=== PATIENT | female | born 1960 | race Caucasian/White ===

== ENCOUNTER 2020-09-25 17:20 | Outpatient (CLI) | payer OTHER, SELFPAY | END 2020-09-25 17:21 | disposition home or self-care (01) | LOC: ANHCOVIDVC 17:20 | PROVIDERS: PCP Family Medicine | DX: Z23 Encounter for immunization (principal) | CPT/HCPCS: 0001A; 91300 ==

== ENCOUNTER 2020-10-16 17:11 | Outpatient (CLI) | payer OTHER, SELFPAY | END 2020-10-16 17:12 | disposition home or self-care (01) | LOC: ANHCOVIDVC 17:12 | PROVIDERS: PCP Family Medicine | DX: Z23 Encounter for immunization (principal) | CPT/HCPCS: 0002A; 91300 ==

== ENCOUNTER → 2021-11-07 16:55 | Outpatient (CLI) | payer OTHER, SELFPAY ==
--- NOTE | ~2021-11-07 | MR_ITS ---
EXAMINATION: MR knee RT wo con DATE: 11/07/2021 17:42 INDICATION: Right knee pain. TECHNIQUE: Magnetic resonance imaging (MRI) of the right knee was performed without intravenous contr ast. Sequences included axial PD-weighted FS FSE, coronal PD-weighted FSE and PD-weighted FS FSE, sag ittal PD-weighted FSE, and sagittal T2-weighted FS FSE. COMPARISON: None. FINDINGS: Medial compartment: There is a complex tear involving body and posterior horn of medial meniscus. There is deep partial t hickness cartilage loss of tibial condyle involving the central and medial articular surface with mil d subchondral edema-like marrow signal intensity. There is deep partial thickness cartilage loss of f emoral condyle involving the central, medial, and posterior articular surface. Osteophytes are noted. Lateral compartment: Lateral meniscus is normal. There is shallow partial-thickness cartilage loss of tibial condyle. Ther e is partial-thickness cartilage loss of femoral condyle, deep at the central articular surface. Oste ophytes are noted. Patellofemoral compartment: There is deep partial thickness cartilage loss of patella involving the median ridge and medial facet . There is full-thickness cartilage loss of medial and lateral trochlea and deep partial thickness ca rtilage loss of central trochlea. Ligaments and tendons: Anterior and posterior cruciate ligaments are normal. There are changes of prior sprains of medial co llateral ligament and fibular collateral ligament characterized by increased signal intensity proxima lly. There is mild patellar tendinopathy. Fluid: There is a small knee joint effusion. There is trace fluid in a Brar's cyst. There is mild superfici al infrapatellar bursitis. IMPRESSION: 1. Severe chondrosis of patellofemoral compartment and moderate chondrosis of medial and lateral comp artments. 2. Tear of medial meniscus. 3. Small knee joint effusion. Reviewed, dictated and finalized at location A. IMPRESSION: 1. Severe chondrosis of patellofemoral compartment and moderate chondrosis of m edial and lateral compartments. 2. Tear of medial meniscus. 3. Small knee joint effusion.
== END ==
PROVIDERS: PCP Physician Assistant; Visit Provider Nurse Practitioner Adult Health
DX: S83.241A Other tear of medial meniscus, current injury, right knee, initial encounter (principal); X58.XXXA Exposure to other specified factors, initial encounter; M25.461 Effusion, right knee
CPT/HCPCS: 73721

== ENCOUNTER 2023-07-07 18:27 | Inpatient (IN) | payer OTHER, SELFPAY ==
--- NOTE | ~2023-07-07 | CT_ITS ---
EXAMINATION: CT abdomen pelvis w con DATE: 07/08/2023 03:27 INDICATION: Abdominal pain. Bloody diarrhea. TECHNIQUE: Computed tomography (CT) of the abdomen and pelvis was performed with 100 mL Omnipaque 350 intravenous contrast. Automated exposure control and iterative reconstruction technique were employe d. The dose-length product was 576.42 mGy-cm. COMPARISON: None. FINDINGS: The visualized portions of the lung bases demonstrate mild atelectasis. No pleural effusion . The heart size is normal. No pericardial effusion. There is a 1.8 cm cyst in the liver. There are c hanges of cholecystectomy. The spleen, pancreas, adrenal glands, and kidneys are normal. The periuter ine veins are prominent, consistent with pelvic venous insufficiency. There is diverticulosis of the colon without evidence of diverticulitis. There is wall thickening of the transverse colon. The appen chantell is normal. There is no significant stenosis of celiac axis, superior mesenteric artery, or inferi or mesenteric artery. There are no pathologically enlarged lymph nodes. There is a small volume of as cites. There is mild thoracic and lumbar spondylosis. IMPRESSION: 1. Wall thickening of the transverse colon, consistent with colitis. 2. Small volume of ascites. Reviewed, dictated and finalized at location E. RNATIONAL TRAVEL CONSULTANT
[2023-07-07 18:40] VITALS: BP 132/79; PULSE 118; RESP 16; TEMP 36.8; O2SAT 98
[2023-07-08] VITALS (19 sets, daily range): BP systolic 93–141; BP diastolic 54–76; PULSE 63–98; RESP 13–18; TEMP 35.9–37.1; O2SAT 96–100; BMI 31.6
[2023-07-08 02:19] LABS: Basophils Absolute Auto 0.1 K/mm3 (0.0-0.1); Basophils Percent Auto 0.3 % (0.2-1.2); Eosinophils Absolute Auto 0.1 K/mm3 (0-0.3); Eosinophils Percent Auto 0.5 % (0-4.4); Hematocrit 42.5 % (37.0-47.0); Hemoglobin 14.1 g/dL (12.0-15.0); Immature Granulocyte Percent A 0.5 % (0-0.5); Lymphocytes Absolute Auto 4.06 K/mm3 (0.9-3.2); Lymphocytes Percent Auto 19.3 % (18.3-44.2); Mean Corpuscular HGB Conc 33.2 g/dl (32-36); Mean Corpuscular Volume 93.4 fl (80-100); Mean Platelet Volume 9.5 fl (7.4-10.4); Monocytes Absolute Auto 1.1 K/mm3 (0.1-0.6); Monocytes Percent Auto 5.1 % (2.6-8.5); Neutrophils Absolute Auto 15.6 K/mm3 (1.3-6.7); Neutrophils Percent Auto 74.3 % (45.5-73.1); Platelet Count Result 285 k/mm3 (150-375); Red Blood Count 4.55 M/mm3 (4.2-5.4); Red Cell Distribution Width 12.1 % (11.5-14.5)
[2023-07-08 02:30] LABS: Alanine Aminotransferase 19 U/L (6-35); Albumin Level 3.4 g/dL (3.5-5.1); Alkaline Phosphatase 82 U/L (38-126); Anion Gap 7 mmol/L (8-16); Aspartate Amino Transferase 20 U/L (14-36); Bilirubin,Total 0.8 mg/dL (0.2-1.3); Blood Urea Nitrogen 14 mg/dL (7-17); Calcium 8.9 mg/dL (8.4-10.2); Carbon Dioxide 27 mmol/L (22-30); Chloride 102 mmol/L (98-107); Estimated CRCL calculation 98 ml/min; Estimated Glomerular Filt Rate > 60; Glucose 120 mg/dL (65-110); Potassium 3.5 mmol/L (3.4-5.0); Sodium 136 mmol/L (137-145)
[2023-07-08] MEDS: SODIUM CHLORIDE 0.9% IV 1,000 ML 999 ML IV CONT (02:30)
[2023-07-08] MEDS: ONDANSETRON INJ 4 MG/2 ML VIAL IV PUSH (02:30)
[2023-07-08] MEDS: MORPHINE SULFATE (*CRX) 4 MG/ML INJ IV PUSH ×5 (02:31→21:18)
[2023-07-08 02:33] LABS: INR 1.1; Prothrombin Time 14.4 Seconds (11.1-14.7)
[2023-07-08 02:34] LABS: Partial Thromboplastin Time 28.1 SECONDS (22.3-36.8)
--- NOTE | 2023-07-08 06:03 | ED.GENADULT ---
HPI - General Adult General Chief complaint: GI Bleed Stated complaint: rectal bleeding, abd pain Time Seen by Provider: 07/08/23 01:36 History of Present Illness HPI narrative: Patient is a 8-year-old female who presents emergency department with chief complaint of abdominal pain and bloody stools. Patient reports that she started having abdominal discomfort has recently been on doxycycline and steroids the patient states that she has had a crampy like feeling throughout her abdomen reports worse in the lower quadrants. Patient states she started having diarrhea and then started having bloody diarrhea Related Data Allergies Allergy/AdvReac Type Severity Reaction Status Date / Time lorazepam Allergy Mild Verified 11/08/10 22:03 Penicillins Allergy Mild Verified 11/08/10 22:03 CEPHALEXIN MONOHYDRATE Allergy Mild Uncoded 11/08/10 22:03 Review of Systems Review of Systems: A 10 system review of systems was completed on the patient and is negative except for what is stated in the HPI. Nursing and ancillary documentation was reviewed. Exam Narrative: GENERAL: Well-appearing, well-nourished, and in no acute distress. HEAD: Normocephalic, atraumatic. EYES: PERRLA and EOMI. ENT: Nares clear, no rhinorrhea or epistaxis. Mucous membranes moist. NECK: Supple. CHEST: Clear to auscultation. No respiratory distress. HEART: Regular rate and rhythm. No murmur heard. Normal peripheral pulses. ABDOMEN: Soft, tenderness to palpation lower quadrants of the abdomen, nondistended, normal active bowel sounds. EXTREMITIES: Normal range of motion. No edema. SKIN: Warm, dry, no rash. NEURO: No focal deficits. Alert and oriented x3. PSYCH: Normal mood and affect. Course Vital Signs Vital signs: Vital Signs Temperature 36.8 C 07/07/23 18:40 Pulse Rate 118 H 07/07/23 18:40 Respiratory Rate 16 07/07/23 18:40 Blood Pressure 132/79 07/07/23 18:40 Pulse Oximetry 98 07/07/23 18:40 Oxygen Delivery Room Air 07/07/23 18:40 Temperature 36.8 C 07/07/23 18:40 Pulse Rate 91 07/08/23 04:17 Respiratory Rate 16 07/08/23 04:17 Blood Pressure 141/72 H 07/08/23 03:00 Pulse Oximetry 97 07/08/23 04:17 Oxygen Delivery Room Air 07/07/23 18:40 Medical Decision Making MDM Narrative Medical decision making narrative: Differential diagnosis colitis, diverticulitis, GI bleed Laboratory studies were obtained on the patient which showed a white count 21.0 hemoglobin was 14.1 CMP was within normal limits CT scan of the abdomen pelvis showed evidence of colitis Given the patient's leukocytosis patient was started on Cipro and Flagyl IV since the patient does have an allergy to penicillins and cephalosporins Vital Signs Vital Signs: Vital Signs Temperature 36.8 C 07/07/23 18:40 Pulse Rate 118 H 07/07/23 18:40 Respiratory Rate 16 07/07/23 18:40 Blood Pressure 132/79 07/07/23 18:40 Pulse Oximetry 98 07/07/23 18:40 Oxygen Delivery Room Air 07/07/23 18:40 Temperature 36.8 C 07/07/23 18:40 Pulse Rate 91 07/08/23 04:17 Respiratory Rate 16 07/08/23 04:17 Blood Pressure 141/72 H 07/08/23 03:00 Pulse Oximetry 97 07/08/23 04:17 Oxygen Delivery Room Air 07/07/23 18:40 Lab Data 07/08/23 02:15 07/08/23 02:15 Labs: Lab Results 07/08/23 Range/Units 02:15 WBC 21.0 H (4.5-10.0) K/mm3 RBC 4.55 (4.2-5.4) M/mm3 Hgb 14.1 (12.0-15.0) g/dL Hct 42.5 (37.0-47.0) % MCV 93.4 (80-100) fl MCH 31.0 (26-34) pg MCHC 33.2 (32-36) g/dl RDW 12.1 (11.5-14.5) % Plt Count 285 (150-375) k/mm3 MPV 9.5 (7.4-10.4) fl Immature Gran % (Auto) 0.5 (0-0.5) % Neut % (Auto) 74.3 H (45.5-73.1) % Lymph % (Auto) 19.3 (18.3-44.2) % [place] % (Auto) 5.1 (2.6-8.5) % Eos % (Auto) 0.5 (0-4.4) % Baso % (Auto) 0.3 (0.2-1.2) % Lymph # (Auto) 4.06 H (0.9-3.2) K/mm3 [place] # (Auto) 1.1 H (0.1-0.6) K/mm3 Eos # (Auto)
[2023-07-08] MEDS: metroNIDAZOLE 500 MG/ISO 100ML 500 MG/100 ML BAG 100 MG IVPB ×3 (06:08→17:46)
[2023-07-08] MEDS: ACETAMINOPHEN 500 MG TABLET 1000 MG PO (06:09)
--- NOTE | 2023-07-08 07:00 | ADMGEN ---
This patient, Kimmie Chand, was admitted to [facility] Surg Room 317-01. Patient/family oriented to hospital policies and general routines including ID bracelet, bed and alarms, visiting hours, pain management, procedures, bathroom and other care routines, personal items, smoking policy, room service/diet, and visiting hours. Information on how to activate the Rapid Response Team has been discussed. Patient/Family are encouraged to report perceived risks to care and to ask questions if they do not understand what they are told or what they should do.
[2023-07-08] MEDS: SODIUM CHLORIDE 0.9% IV 1,000 ML 125 ML IV CONT ×2 (08:05→19:18)
[2023-07-08] MEDS: levoFLOXacin 750 MG/D5W 150 ML 750 MG/150 ML BAG 100 MG IVPB (08:05)
--- NOTE | 2023-07-08 08:54 | PM.IMHP ---
H&P: HPI History of Present Illness Date/Time: 07/08/23 08:54 Chief Complaint: abdominal pain Narrative: 62-year-old female with history of hypertension is presenting with abdominal pain, diarrhea, and blood in her stool. She admits to lower quadrant abdominal cramping. She denies chest pain, shortness of breath, fevers, chills. Patient states she has recurrent episodes of cramping abdominal pain followed by an episode or 2 of diarrhea. She also notes nausea with these episodes but rarely emesis. She occasionally gets hot flashes and then cold chills as well as ear ringing during these episodes. She states this episode was exactly the same as all the other ones except for the blood in her stool that was new. Normally she just has watery stool but no blood. As of today, all of her symptoms are resolved. She was recently placed on doxycycline and prednisone as an outpatient for URI symptoms. In the ER, CT abdomen and pelvis showed colitis and patient was started on Cipro and Flagyl. She was also noted to a leukocytosis with a white blood cell count of 21K. Review of Systems Review of Systems: 12 point review of systems was assessed and was negative except as noted in the HPI [facility] Past Medical History Medical History Benign essential hypertension Social History Social History Smoking status: Never smoker Alcohol intake: current Drinks per week: 1 Substance use: never Last use: rare alcohol intake 1 every couple of months Do You Feel Safe in your Home?: No Lack of Transportation: No Lack of Food: Never True Current Housing: I Have Housing Concerned About Future Housing: No Difficulty Paying Gas/Electric Bills: No Difficulty Paying for Meds: No Currently Unemployed: No Education: Bachelor's Degree Difficulty w/ Childcare or Family Care: No Spiritual care concerns: No Meds Home Medications and Allergies Home Medications Medication Instructions Recorded Confirmed Type hydrochlorothiazide 25 mg tablet 25 mg PO DAILY 07/08/23 07/08/23 History Allergies Allergy/AdvReac Type Severity Reaction Status Date / Time lorazepam Allergy Severe throat Verified 07/08/23 08:14 swelling Penicillins Allergy Severe Difficulty Verified 07/08/23 08:14 Breathing CEPHALEXIN MONOHYDRATE Allergy Severe Swelling Uncoded 07/08/23 08:14 of Lip/Tongue/Throat Vital Signs Vital Signs - 24 hr 07/07/23 18:40 07/08/23 02:16 07/08/23 02:17 Temperature 98.3 F Pulse Rate 118 H 96 Respiratory Rate 16 15 Blood Pressure 132/79 Pulse Oximetry 98 97 99 Oxygen Delivery Room Air 07/08/23 02:21 07/08/23 02:43 07/08/23 02:45 Temperature Pulse Rate 97 89 89 Respiratory Rate 17 13 18 Blood Pressure 129/72 Pulse Oximetry 98 99 97 Oxygen Delivery 07/08/23 03:00 07/08/23 03:01 07/08/23 03:24 Temperature Pulse Rate 83 84 98 Respiratory Rate 15 Blood Pressure 141/72 H Pulse Oximetry 98 100 99 Oxygen Delivery 07/08/23 03:30 07/08/23 03:45 07/08/23 04:00 Temperature Pulse Rate 92 92 93 Respiratory Rate 13 16 16 Blood Pressure Pulse Oximetry 96 96 97 Oxygen Delivery 07/08/23 04:17 07/08/23 06:15 07/08/23 06:30 Temperature Pulse Rate 91 92 87 Respiratory Rate 16 18 18 Blood Pressure 95/76 L Pulse Oximetry 97 97 97 Oxygen Delivery 07/08/23 06:31 Temperature Pulse Rate 91 Respiratory Rate 16 Blood Pressure 106/70 Pulse Oximetry 97 Oxygen Delivery Exam Narrative: General: No acute distress, alert and oriented per baseline HEENT: Atraumatic, normocephalic, mucous membranes moist CV: Regular rate and rhythm, S1, S2 Lungs: Clear to auscultation bilaterally, no rales or crackles noted, no wheezes, good air entry Abdomen: Soft, nontender, nondistended Extremities: Normal to inspection
[2023-07-08] MEDS: PANTOPRAZOLE SODIUM IV 40 MG VIAL IV PUSH (10:15)
[2023-07-08] MEDS: hydroCHLOROthiazide 25 MG TABLET PO (10:15)
[2023-07-08 10:41] LABS: CRP 3.2 mg/dL (<1.0)
--- NOTE | 2023-07-08 15:10 | PCCCNOTE ---
On 07/08/23, the student, [Lisette Leblanc], provided care and completed [facility] documentation on this patient. I have reviewed the student's documentation and agree with the findings.
--- NOTE | 2023-07-08 16:57 | WPDGICN ---
Assessment and Plan Assessment and plan (1) Colitis: Code(s): K52.9 - Noninfective gastroenteritis and colitis, unspecified Status: Acute Assessment and Plan: CT scan shows colonic wall thickening of the transverse colon. This suggests segmental colitis which would be consistent with ischemia as an etiology. She has no history however of any vascular disease. her cramping is worse when she tries to eat. She states she would do better with just liquids I agree with her that would be best not to tax her system with regular food at this point. (2) Leukocytosis: Code(s): D72.829 - Elevated white blood cell count, unspecified Status: Acute Assessment and Plan: With blood count is elevated. She has been started on ciprofloxacin and metronidazole empirically. (3) Bloody diarrhea: Code(s): R19.7 - Diarrhea, unspecified Status: Acute Assessment and Plan: She has never had this before. The blood was dark red in the bowl but bright red when she wiped herself. Given the fact she has recently been on antibiotics, C difficile colitis is a possibility. I have ordered stool for C diff. She has not yet been able to produce a stool because she has had None since admission. GI Consult Note Consult date/time: 07/08/23 16:57 HPI: Kimmie Chand is a 62 year old female Was admitted with abdominal pain and rectal bleeding. prior to that she was having diarrhea. this all started on Piter would initially she felt cramping in her abdomen and was becoming diaphoretic and lightheaded. She went to the bathroom thinking she may have diarrhea but that did not a core. At lasted for some time. She had another episode like that and subsequently did pass stool. His stool was dark red and when she wiped herself there was bright red blood on the paper. She had 2 stools like that. Now, today since admission she has had no more bowel movements. She has recently been on steroids And doxycycline for upper respiratory infection including pharyngitis, laryngitis and cough. CT scan suggests colitis, it reveals: 1. Wall thickening of the transverse colon, consistent with colitis. 2. Small volume of ascites. She has never had disorders of the colon. She has never had a colonoscopy but her new primary care provider has been encouraging her to have 1. She has done Cologuard tests and they were negative. There is no family history of digestive diseases. She did not have a fever at home. Her white blood count however is elevated at 21,000 . Review of Systems Review of Systems: All systems reviewed & are unremarkable except as noted in HPI and below PMFSH Past Medical History Medical History Benign essential hypertension Social History Social History Smoking status: Never smoker Alcohol intake: current Drinks per week: 1 Substance use: never Last use: rare alcohol intake 1 every couple of months Do You Feel Safe in your Home?: No Lack of Transportation: No Lack of Food: Never True Current Housing: I Have Housing Concerned About Future Housing: No Difficulty Paying Gas/Electric Bills: No Difficulty Paying for Meds: No Currently Unemployed: No Education: Bachelor's Degree Difficulty w/ Childcare or Family Care: No Spiritual care concerns: No Meds Home Medications and Allergies Home Medications Medication Instructions Recorded Confirmed Type hydrochlorothiazide 25 mg tablet 25 mg PO DAILY 07/08/23 07/08/23 History Allergies Allergy/AdvReac Type Severity Reaction Status Date / Time lorazepam Allergy Severe throat Verified 07/08/23 08:14 swelling Penicillins Allergy Severe Difficulty Verified 07/08/23 08:14 Breathing CEPHALEXIN MONOHYDRATE Allergy Severe Swelling Uncoded 07/08/23 08:14 of Lip/Tongue/Throat Vit
[2023-07-09] MEDS: metroNIDAZOLE 500 MG/ISO 100ML 500 MG/100 ML BAG 100 MG IVPB ×4 (00:36→17:00)
[2023-07-09] MEDS: SODIUM CHLORIDE 0.9% IV 1,000 ML 125 ML IV CONT (04:31)
[2023-07-09 06:00] VITALS: BP 102/54; PULSE 88; RESP 18; TEMP 37; O2SAT 100
[2023-07-09] MEDS: levoFLOXacin 750 MG/D5W 150 ML 750 MG/150 ML BAG 100 MG IVPB (06:40)
--- NOTE | 2023-07-09 06:41 | WPDGIPROGNO ---
Progress Note: A&P Assessment and Plan (1) Colitis: Code(s): K52.9 - Noninfective gastroenteritis and colitis, unspecified Status: Acute Assessment and Plan: CT scan shows colonic wall thickening of the transverse colon. This suggests segmental colitis which would be consistent with ischemia as an etiology. She has no history however of any vascular disease. her cramping is worse when she tries to eat. She states she would do better with just liquids I agree with her that would be best not to tax her system with regular food at this point. Will schedule for colonoscopy and begin prep today (2) Leukocytosis: Code(s): D72.829 - Elevated white blood cell count, unspecified Status: Acute Assessment and Plan: With blood count is elevated. She has been started on ciprofloxacin and metronidazole empirically. (3) Bloody diarrhea: Code(s): R19.7 - Diarrhea, unspecified Status: Acute Assessment and Plan: She has never had this before. The blood was dark red in the bowl but bright red when she wiped herself. Given the fact she has recently been on antibiotics, C difficile colitis is a possibility. I have ordered stool for C diff. She has not yet been able to produce a stool because she has had None since admission. Subjective Date/time seen: 07/09/23 06:41 She is tolerating liquid diet. Still cramping though not as severe. No bowel movement since admission. I discussed with her the possible etiologies, infectious versus ischemic colitis. Will begin prep for colonoscopy. Exam Const: General: cooperative and healthy appearing Orientation/consciousness: patient oriented x3 HENMT: Head: normal to inspection Ears: hearing grossly normal bilaterally Mouth: Yes Normal oral and palatal mucosa present Eyes: General: appearance normal, both eyes and all related structures Neck: Neck: normal visual inspection Chest: Chest palpation & inspection: normal inspection of the chest Resp: Effort & Inspection: normal respiratory effort Auscultation: clear to auscultation bilaterally Cardio: Rate: regular rate Rhythm: regular rhythm GI: Inspection: normal to inspection GI Palp: Yes abdominal tenderness ( Throughout lower abdomen), Yes Soft to palpation, No Guarding due to palpation present (GI) and Yes No hepatosplenomegaly present Auscultation: normal bowel sounds Skin: General skin exam: normal color and no jaundice Neuro: General: patient oriented x3 Speech: normal speech Objective Data Vital Signs Vital Signs: Vital Signs - 24 hr 07/08/23 12:00 07/08/23 14:00 07/08/23 21:45 Temperature 36.4 C L 35.9 C L 37.1 C Pulse Rate 63 67 93 Respiratory Rate 18 18 16 Blood Pressure 93/54 L 99/58 L 108/59 L Pulse Oximetry 99 96 98 Oxygen Delivery 07/08/23 20:00 07/09/23 06:00 Temperature 37.0 C Pulse Rate 93 88 Respiratory Rate 16 18 Blood Pressure 102/54 L Pulse Oximetry 98 100 Oxygen Delivery Room Air Intake/Output Intake/Output: Intake & Output 07/06/23 07/07/23 07/08/23 07/09/23 23:59 23:59 23:59 23:59 Intake Total 3660 1400 Balance 3660 1400 Meds/Results Medications: Active Medications Generic Name Dose Route Start Last Admin Trade Name Freq PRN Reason Stop Dose Admin Acetaminophen 650 mg 07/08/23 06:09 Acetaminophen 325 Mg Tablet PO Q4H PRN Mild Pain (1-3) or Fever Hydrochlorothiazide 25 mg 07/08/23 09:10 07/08/23 10:15 Hydrochlorothiazide 25 Mg Tablet PO 25 mg DAILY LATHA Administration Metronidazole 500 mg in 100 mls @ 100 mls/hr 07/08/23 12:00 07/09/23 05:29 Flagyl 500 Mg/Iso Soln 100 Ml IVPB 100 mls/hr Q6H LATHA Administration Levofloxacin/Dextrose 750 mg in 150 mls @ 100 mls/hr 07/09/23 06:00 07/09/23 06:40 Levaquin 750 Mg/D5w 150 Ml IVPB 100 mls/hr Q24H LATHA Administration Sodium Chloride 1,000 mls @ 125 mls/hr 07/08/23 06:10 07/09/23 04:31 Normal Saline Iv IV
[2023-07-09 06:57] LABS: Basophils Absolute Auto 0.1 K/mm3 (0.0-0.1); Basophils Percent Auto 0.4 % (0.2-1.2); Eosinophils Absolute Auto 0.3 K/mm3 (0-0.3); Eosinophils Percent Auto 2.2 % (0-4.4); Hematocrit 37.5 % (37.0-47.0); Hemoglobin 12.1 g/dL (12.0-15.0); Immature Granulocyte Absolute 0.06 K/mm3 (0.00-0.031); Immature Granulocyte Percent A 0.4 % (0-0.5); Lymphocytes Absolute Auto 3.13 K/mm3 (0.9-3.2); Lymphocytes Percent Auto 22.8 % (18.3-44.2); Mean Corpuscular HGB Conc 32.3 g/dl (32-36); Mean Corpuscular Hemoglobin 30.9 pg (26-34); Mean Corpuscular Volume 95.9 fl (80-100); Mean Platelet Volume 9.6 fl (7.4-10.4); Monocytes Absolute Auto 0.7 K/mm3 (0.1-0.6); Neutrophils Absolute Auto 9.5 K/mm3 (1.3-6.7); Neutrophils Percent Auto 69.2 % (45.5-73.1); Platelet Count Result 219 k/mm3 (150-375); Red Blood Count 3.91 M/mm3 (4.2-5.4); Red Cell Distribution Width 12.1 % (11.5-14.5); White Blood Count 13.7 K/mm3 (4.5-10.0)
[2023-07-09 07:10] LABS: Alanine Aminotransferase 14 U/L (6-35); Alkaline Phosphatase 73 U/L (38-126); Anion Gap 7 mmol/L (8-16); Aspartate Amino Transferase 17 U/L (14-36); Bilirubin,Total 0.5 mg/dL (0.2-1.3); Blood Urea Nitrogen 10 mg/dL (7-17); Calcium 8.5 mg/dL (8.4-10.2); Carbon Dioxide 27 mmol/L (22-30); Chloride 104 mmol/L (98-107); Estimated CRCL calculation 85 ml/min; Estimated Glomerular Filt Rate > 60; Glucose 93 mg/dL (65-110); Potassium 3.4 mmol/L (3.4-5.0); Sodium 138 mmol/L (137-145)
[2023-07-09] MEDS: PANTOPRAZOLE SODIUM IV 40 MG VIAL IV PUSH (08:51)
--- NOTE | 2023-07-09 10:11 | PM.IMPN ---
Progress Note: A&P Assessment and Plan (1) Colitis: Code(s): K52.9 - Noninfective gastroenteritis and colitis, unspecified Status: Acute Assessment and Plan: Cipro and Flagyl initiated 07/08 IV fluids, supportive care, ppi Monitor hemoglobin, suspect blood in stool is secondary to infection and is quite stable Will send stool for cdif, culture, leuks, check CRP Consult to GI placed in pending, likely needs colonoscopy due to recurrent episodes like this, concern for diverticulitis versus Crohn's versus ulcerative colitis versus ischemic vs infectious etiology Appreciate GI consult, plan for colonoscopy 07/10 (2) Benign essential hypertension: Code(s): I10 - Essential (primary) hypertension Status: Acute Assessment and Plan: Continue home hydrochlorothiazide Blood pressures reviewed 07/09 Plan DVT prophylaxis with SCDs GI prophylaxis with PPI Code status full code Subjective Date/time seen: 07/09/23 10:11 Interval history: 62-year-old female with history of hypertension is presenting with abdominal pain, diarrhea, and blood in her stool. No overnight events noted. No chest pain or shortness of breath. No nausea, vomiting or diarrhea. No fevers or chills. Colonoscopy prep today, scope tomorrow planned 07/10. Review of Systems Review of Systems: 12 point review of systems was assessed and was negative except as noted in the HPI Exam Narrative: General: No acute distress, alert and oriented per baseline HEENT: Atraumatic, normocephalic, mucous membranes moist CV: Regular rate and rhythm, S1, S2 Lungs: Clear to auscultation bilaterally, no rales or crackles noted, no wheezes, good air entry Abdomen: Soft, nontender, nondistended Extremities: Normal to inspection Skin: No rashes noted, no lesions or wounds seen Psych: Euthymic, normal affect Objective Data Vital Signs Vital Signs: Vital Signs - 24 hr 07/08/23 12:00 07/08/23 14:00 07/08/23 21:45 Temperature 97.5 F L 96.6 F L 98.7 F Pulse Rate 63 67 93 Respiratory Rate 18 18 16 Blood Pressure 93/54 L 99/58 L 108/59 L Pulse Oximetry 99 96 98 Oxygen Delivery 07/08/23 20:00 07/09/23 06:00 Temperature 98.6 F Pulse Rate 93 88 Respiratory Rate 16 18 Blood Pressure 102/54 L Pulse Oximetry 98 100 Oxygen Delivery Room Air Intake/Output Intake/Output: Intake & Output 07/06/23 07/07/23 07/08/23 07/09/23 23:59 23:59 23:59 23:59 Intake Total 3660 1500 Balance 3660 1500 Meds/Results Medications: Active Medications Generic Name Dose Route Start Last Admin Trade Name Freq PRN Reason Stop Dose Admin Acetaminophen 650 mg 07/08/23 06:09 Acetaminophen 325 Mg Tablet PO Q4H PRN Mild Pain (1-3) or Fever Bisacodyl 10 mg 07/09/23 15:00 Bisacodyl 5 Mg Tablet Ec PO 07/09/23 21:01 1500,2100 LATHA Hydrochlorothiazide 25 mg 07/08/23 09:10 07/09/23 08:51 Hydrochlorothiazide 25 Mg Tablet PO 25 mg DAILY LATHA Administration Metronidazole 500 mg in 100 mls @ 100 mls/hr 07/08/23 12:00 07/09/23 06:30 Flagyl 500 Mg/Iso Soln 100 Ml IVPB Infused Q6H LATHA Infusion Levofloxacin/Dextrose 750 mg in 150 mls @ 100 mls/hr 07/09/23 06:00 07/09/23 06:40 Levaquin 750 Mg/D5w 150 Ml IVPB 100 mls/hr Q24H LATHA Administration Sodium Chloride 1,000 mls @ 125 mls/hr 07/08/23 06:10 07/09/23 04:31 Normal Saline Iv IV CONT 125 mls/hr .Q8H LATHA Administration Morphine Sulfate 4 mg 07/08/23 06:09 07/08/23 21:18 Morphine Sulfate (*Crx) 4 Mg/Ml Inj IV PUSH 4 mg Q2H PRN Administration Pain Rated 7-10 Pantoprazole Sodium 40 mg 07/08/23 09:00 07/09/23 08:51 Pantoprazole Sodium Iv 40 Mg Vial IV PUSH 40 mg QAM LATHA Administration Polyethylene Glycol 238 gm 07/09/23 15:43 Polyethylene Glycol 3350 238 Gm Bottle PO 07/09/23 15:44 ONCE ONE Radiology Results: ITS Impressions Abdomen/Pelvis CT 07/08/23 0
[2023-07-09] MEDS: MORPHINE SULFATE (*CRX) 4 MG/ML INJ IV PUSH (11:50)
[2023-07-09 14:00] VITALS: BP 106/64; PULSE 78; RESP 20; TEMP 35; O2SAT 99
--- NOTE | 2023-07-09 15:01 | PCCCNOTE ---
On 07/09/23, the student, [Lisette Leblanc], provided care and completed [facility] documentation on this patient. I have reviewed the student's documentation and agree with the findings.
[2023-07-09] MEDS: PROMETHAZINE HCL 25 MG/ML AMPUL 12.5 MG IV PUSH ×2 (16:04→20:39)
[2023-07-09] MEDS: BISACODYL 5 MG TABLET EC 10 MG PO ×2 (17:54→20:36)
[2023-07-09] MEDS: polyethylene glycoL 3350 238 GM BOTTLE PO (17:54)
[2023-07-09 21:20] VITALS: BP 131/54; PULSE 81; RESP 16; TEMP 36.1; O2SAT 100
[2023-07-10] VITALS (8 sets, daily range): BP systolic 113–142; BP diastolic 45–74; PULSE 82–88; RESP 14–20; TEMP 35.9–36.6; O2SAT 98–100
[2023-07-10] MEDS: SODIUM CHLORIDE 0.9% IV 1,000 ML 125 ML IV CONT (03:05)
[2023-07-10] MEDS: PROMETHAZINE HCL 25 MG/ML AMPUL 12.5 MG IV PUSH (03:06)
[2023-07-10] MEDS: metroNIDAZOLE 500 MG/ISO 100ML 500 MG/100 ML BAG 100 MG IVPB ×2 (03:06→08:34)
[2023-07-10] MEDS: levoFLOXacin 750 MG/D5W 150 ML 750 MG/150 ML BAG 100 MG IVPB (05:22)
[2023-07-10] MEDS: ACETAMINOPHEN 325 MG TABLET 650 MG PO (05:24)
[2023-07-10 06:50] LABS: Alanine Aminotransferase 14 U/L (6-35); Albumin Level 3.1 g/dL (3.5-5.1); Alkaline Phosphatase 67 U/L (38-126); Anion Gap 7 mmol/L (8-16); Aspartate Amino Transferase 18 U/L (14-36); Bilirubin,Total 0.6 mg/dL (0.2-1.3); Blood Urea Nitrogen 9 mg/dL (7-17); Calcium 8.4 mg/dL (8.4-10.2); Carbon Dioxide 27 mmol/L (22-30); Chloride 103 mmol/L (98-107); Estimated CRCL calculation 101 ml/min; Estimated Glomerular Filt Rate > 60; Glucose 100 mg/dL (65-110); Sodium 137 mmol/L (137-145)
[2023-07-10 06:52] LABS: Basophils Absolute Auto 0.1 K/mm3 (0.0-0.1); Basophils Percent Auto 0.4 % (0.2-1.2); Eosinophils Absolute Auto 0.4 K/mm3 (0-0.3); Hematocrit 36.1 % (37.0-47.0); Hemoglobin 11.8 g/dL (12.0-15.0); Immature Granulocyte Absolute 0.07 K/mm3 (0.00-0.031); Immature Granulocyte Percent A 0.4 % (0-0.5); Lymphocytes Absolute Auto 2.96 K/mm3 (0.9-3.2); Lymphocytes Percent Auto 16.9 % (18.3-44.2); Mean Corpuscular HGB Conc 32.7 g/dl (32-36); Mean Corpuscular Hemoglobin 31.2 pg (26-34); Mean Corpuscular Volume 95.5 fl (80-100); Mean Platelet Volume 10.1 fl (7.4-10.4); Monocytes Absolute Auto 0.8 K/mm3 (0.1-0.6); Monocytes Percent Auto 4.7 % (2.6-8.5); Neutrophils Absolute Auto 13.3 K/mm3 (1.3-6.7); Neutrophils Percent Auto 75.6 % (45.5-73.1); Platelet Count Result 220 k/mm3 (150-375); Red Blood Count 3.78 M/mm3 (4.2-5.4); Red Cell Distribution Width 12.1 % (11.5-14.5); White Blood Count 17.6 K/mm3 (4.5-10.0)
[2023-07-10] MEDS: PANTOPRAZOLE SODIUM IV 40 MG VIAL IV PUSH (08:33)
[2023-07-10] MEDS: hydroCHLOROthiazide 25 MG TABLET PO (08:33)
--- NOTE | 2023-07-10 08:34 | PM.IMPN ---
Progress Note: A&P Assessment and Plan (1) Colitis: Code(s): K52.9 - Noninfective gastroenteritis and colitis, unspecified Status: Acute Assessment and Plan: Cipro and Flagyl initiated 07/08 IV fluids, supportive care, ppi Monitor hemoglobin, suspect blood in stool is secondary to infection and is quite stable Will send stool for cdif, culture, leuks, check CRP Consult to GI placed in pending, likely needs colonoscopy due to recurrent episodes like this, concern for diverticulitis versus Crohn's versus ulcerative colitis versus ischemic vs infectious etiology Appreciate GI consult, plan for colonoscopy 07/10 (2) Benign essential hypertension: Code(s): I10 - Essential (primary) hypertension Status: Acute Assessment and Plan: Continue home hydrochlorothiazide Blood pressures reviewed 07/09 Plan DVT prophylaxis with SCDs GI prophylaxis with PPI Code status full code Subjective Date/time seen: 07/10/23 08:34 Interval history: 62-year-old female with history of hypertension is presenting with abdominal pain, diarrhea, and blood in her stool. No overnight events noted. No chest pain or shortness of breath. No nausea, vomiting or diarrhea. No fevers or chills. Colonoscopy today 07/10 Review of Systems Review of Systems: 12 point review of systems was assessed and was negative except as noted in the HPI Exam Narrative: in colonoscopy Objective Data Vital Signs Vital Signs: Vital Signs - 24 hr 07/09/23 14:00 07/09/23 08:51 07/09/23 21:20 Temperature 95.0 F L 96.9 F L Pulse Rate 78 81 Respiratory Rate 20 16 Blood Pressure 106/64 131/54 L Pulse Oximetry 99 100 Oxygen Delivery Room Air 07/10/23 05:45 Temperature 97.0 F L Pulse Rate 88 Respiratory Rate 14 Blood Pressure 116/50 L Pulse Oximetry 98 Oxygen Delivery Intake/Output Intake/Output: Intake & Output 07/07/23 07/08/23 07/09/23 07/10/23 23:59 23:59 23:59 23:59 Intake Total 3660 3875 600 Output Total 300 Balance 3660 3875 300 Meds/Results Medications: Active Medications Generic Name Dose Route Start Last Admin Trade Name Freq PRN Reason Stop Dose Admin Acetaminophen 650 mg 07/08/23 06:09 07/10/23 05:24 Acetaminophen 325 Mg Tablet PO 650 mg Q4H PRN Administration Mild Pain (1-3) or Fever Hydrochlorothiazide 25 mg 07/08/23 09:10 07/10/23 08:33 Hydrochlorothiazide 25 Mg Tablet PO 25 mg DAILY LATHA Administration Levofloxacin/Dextrose 750 mg in 150 mls @ 100 mls/hr 07/09/23 06:00 07/10/23 05:22 Levaquin 750 Mg/D5w 150 Ml IVPB 100 mls/hr Q24H LATHA Administration Sodium Chloride 1,000 mls @ 125 mls/hr 07/08/23 06:10 07/10/23 06:45 Normal Saline Iv IV CONT Not Given .Q8H LATHA Metronidazole 500 mg in 100 mls @ 100 mls/hr 07/10/23 09:00 07/10/23 08:34 Flagyl 500 Mg/Iso Soln 100 Ml IVPB 100 mls/hr Q6H LATHA Administration Morphine Sulfate 4 mg 07/08/23 06:09 07/09/23 11:50 Morphine Sulfate (*Crx) 4 Mg/Ml Inj IV PUSH 4 mg Q2H PRN Administration Pain Rated 7-10 Ondansetron HCl 4 mg 07/09/23 15:48 Ondansetron Inj 4 Mg/2 Ml Vial IV PUSH Q6H PRN Nausea And Vomiting Pantoprazole Sodium 40 mg 07/08/23 09:00 07/10/23 08:33 Pantoprazole Sodium Iv 40 Mg Vial IV PUSH 40 mg QAM LATHA Administration Promethazine HCl 12.5 mg 07/09/23 15:48 07/10/23 03:06 Promethazine Hcl 25 Mg/Ml Ampul IV PUSH 12.5 mg Q4H PRN Administration Nausea And Vomiting Radiology Results: ITS Impressions Abdomen/Pelvis CT 07/08/23 05:16 IMPRESSION: 1. Wall thickening of the transverse colon, consistent with colitis. 2. Small volume of ascites. Labs Labs: Laboratory Results - last 24 hr 07/10/23 06:10 WBC 17.6 H RBC 3.78 L Hgb 11.8 L Hct 36.1 L MCV 95.5 MCH 31.2 MCHC 32.7 RDW 12.1 Plt Count 220 MPV 10.1 Immature Gran % (Auto) 0.4 Neut %
--- NOTE | 2023-07-10 09:57 | PC.NURSE ---
Pt down to GI lab for colonoscopy.
[2023-07-10] MEDS: LACTATED RINGERS 1,000 ML 150 ML IV CONT (10:10)
--- NOTE | 2023-07-10 10:25 | WPDANESEPPF ---
Anes - Initial Pre Proc Eval Procedure: Operation Date: 07/10/23 11:00 Proposed Procedures p Colonoscopy - Jeancarlos Alamo MD Date/Time: 07/10/23 10:25 Surgeon: Asia Haines MD Pre Op Diagnosis: COLITIS,LEUKOCYTOSIS Patient Data Age: 62 Gender: F Height: 1.6 m Weight: 81 kg Last Vital Signs Temp 97.5 F L 07/10/23 10:02 Pulse 84 07/10/23 10:02 Resp 20 07/10/23 10:02 BP 113/61 07/10/23 10:02 Pulse Ox 100 07/10/23 10:02 O2 Del Method Room Air 07/10/23 10:02 Allergies Allergy/AdvReac Type Severity Reaction Status Date / Time cephalexin Allergy Severe Swelling Unverified 07/10/23 10:06 of Lip/Tongue/Throat lorazepam Allergy Severe throat Verified 07/10/23 09:58 swelling Penicillins Allergy Severe Difficulty Verified 07/10/23 09:58 Breathing Home Medications Medication Instructions Recorded Confirmed Type hydrochlorothiazide 25 mg tablet 25 mg PO DAILY 07/08/23 07/08/23 History Laboratory Tests 07/10/23 06:10 WBC 17.6 H K/mm3 (4.5-10.0) RBC 3.78 L M/mm3 (4.2-5.4) Hgb 11.8 L g/dL (12.0-15.0) Hct 36.1 L % (37.0-47.0) MCV 95.5 fl (80-100) MCH 31.2 pg (26-34) MCHC 32.7 g/dl (32-36) RDW 12.1 % (11.5-14.5) Plt Count 220 k/mm3 (150-375) MPV 10.1 fl (7.4-10.4) Immature Gran % (Auto) 0.4 % (0-0.5) Neut % (Auto) 75.6 H % (45.5-73.1) Lymph % (Auto) 16.9 L % (18.3-44.2) [place] % (Auto) 4.7 % (2.6-8.5) Eos % (Auto) 2.0 % (0-4.4) Baso % (Auto) 0.4 % (0.2-1.2) Lymph # (Auto) 2.96 K/mm3 (0.9-3.2) [place] # (Auto) 0.8 H K/mm3 (0.1-0.6) Eos # (Auto) 0.4 H K/mm3 (0-0.3) Baso # (Auto) 0.1 K/mm3 (0.0-0.1) Abs Immat Gran (auto) 0.07 H K/mm3 (0.00-0.031) Absolute Neuts (auto) 13.3 H K/mm3 (1.3-6.7) Absolute Nucleated RBC 0.0 K/mm3 (0.0-0.012) Nucleated RBC % 0.0 % (0.0-0.2) Sodium 137 mmol/L (137-145) Potassium 3.0 L mmol/L (3.4-5.0) Chloride 103 mmol/L (98-107) Carbon Dioxide 27 mmol/L (22-30) Anion Gap 7 L mmol/L (8-16) BUN 9 mg/dL (7-17) Creatinine 0.50 L mg/dL (0.7-1.0) Estim Creat Clear Calc 101 ml/min Estimated GFR > 60 (59 - ) Glucose 100 mg/dL (65-110) Calcium 8.4 mg/dL (8.4-10.2) Total Bilirubin 0.6 mg/dL (0.2-1.3) AST 18 U/L (14-36) ALT 14 U/L (6-35) Alkaline Phosphatase 67 U/L (38-126) Total Protein 6.0 L g/dL (6.3-8.2) Albumin 3.1 L g/dL (3.5-5.1) Patient hx anesthesia problems: none Family hx anesthesia problems: none Results Review: All pre-operative results and documents have been reviewed as part of the pre-operative evaluation. [facility] Past Medical History Medical History Benign essential hypertension Social History Social History Smoking status: Never smoker Alcohol intake: current Drinks per week: 1 Substance use: never Last use: rare alcohol intake 1 every couple of months Do You Feel Safe in your Home?: No Lack of Transportation: No Lack of Food: Never True Current Housing: I Have Housing Concerned About Future Housing: No Difficulty Paying Gas/Electric Bills: No Difficulty Paying for Meds: No Currently Unemployed: No Education: Bachelor's Degree Difficulty w/ Childcare or Family Care: No Spiritual care concerns: No Anes - Eval Final PreProcedure Day of Procedure 07/10/23 10:25 Patient weight: obese Heart: regular rate and rhythm Lungs: clear to auscultation Airway: Mallampati scale class II Neurological: alert and oriented Last oral intake: >/= 8 hours ASA classification: III Emergent: no Anesthetic plan: proceed Anesthesia type and monitoring: general GIVS and standard monitoring Results Review: All pre-operative results and documents have
--- NOTE | 2023-07-10 11:32 | PC.NURSE ---
Pt. back from GI lab.
[2023-07-10] MEDS: POTASSIUM CHLORIDE 20 MEQ PACKET (FOR LIQUID) 40 MEQ PO (14:33)
[2023-07-10 15:56] LABS: Toxigenic C. Diff NEGATIVE (NEGATIVE)
--- NOTE | 2023-07-10 17:18 | PC.NURSE ---
Assessed patient for midline, she had no viable vessels for midline placement. I also assessed veins in lower arms for PIV placement but there were no veins of adequate size to maintain an IV. Findings discussed with bedside BUZZ Luis.
[2023-07-10] MEDS: metroNIDAZOLE 500 MG TABLET PO (20:48)
[2023-07-11] MEDS: metroNIDAZOLE 500 MG TABLET PO ×3 (00:35→12:19)
[2023-07-11] MEDS: ACETAMINOPHEN 325 MG TABLET 650 MG PO (00:37)
[2023-07-11 05:38] VITALS: BP 109/55; PULSE 78; RESP 12; TEMP 36.7; O2SAT 97
[2023-07-11 06:28] LABS: Basophils Absolute Auto 0.1 K/mm3 (0.0-0.1); Basophils Percent Auto 0.6 % (0.2-1.2); Eosinophils Absolute Auto 0.7 K/mm3 (0-0.3); Eosinophils Percent Auto 6.2 % (0-4.4); Hematocrit 39.3 % (37.0-47.0); Immature Granulocyte Absolute 0.04 K/mm3 (0.00-0.031); Immature Granulocyte Percent A 0.4 % (0-0.5); Lymphocytes Absolute Auto 2.78 K/mm3 (0.9-3.2); Lymphocytes Percent Auto 24.8 % (18.3-44.2); Mean Corpuscular HGB Conc 33.1 g/dl (32-36); Mean Corpuscular Hemoglobin 31.1 pg (26-34); Mean Platelet Volume 9.9 fl (7.4-10.4); Monocytes Absolute Auto 0.5 K/mm3 (0.1-0.6); Monocytes Percent Auto 4.5 % (2.6-8.5); Neutrophils Absolute Auto 7.1 K/mm3 (1.3-6.7); Neutrophils Percent Auto 63.5 % (45.5-73.1); Platelet Count Result 223 k/mm3 (150-375); Red Blood Count 4.18 M/mm3 (4.2-5.4); Red Cell Distribution Width 12.1 % (11.5-14.5); White Blood Count 11.2 K/mm3 (4.5-10.0)
[2023-07-11] MEDS: levoFLOXacin 750 MG TABLET PO (06:37)
[2023-07-11 06:47] LABS: Alanine Aminotransferase 16 U/L (6-35); Albumin Level 3.3 g/dL (3.5-5.1); Alkaline Phosphatase 68 U/L (38-126); Anion Gap 6 mmol/L (8-16); Aspartate Amino Transferase 21 U/L (14-36); Bilirubin,Total 0.5 mg/dL (0.2-1.3); Blood Urea Nitrogen 10 mg/dL (7-17); Calcium 8.7 mg/dL (8.4-10.2); Carbon Dioxide 29 mmol/L (22-30); Chloride 104 mmol/L (98-107); Estimated CRCL calculation 85 ml/min; Estimated Glomerular Filt Rate > 60; Glucose 93 mg/dL (65-110); Sodium 139 mmol/L (137-145)
[2023-07-11] MEDS: hydroCHLOROthiazide 25 MG TABLET PO (08:14)
[2023-07-11] MEDS: ONDANSETRON HCL ODT 4 MG TABLET PO (08:14)
[2023-07-11] MEDS: PANTOPRAZOLE 40 MG TABLET PO (08:14)
--- NOTE | 2023-07-11 12:09 | PM.IMPN ---
Progress Note: A&P Assessment and Plan (1) Colitis: Code(s): K52.9 - Noninfective gastroenteritis and colitis, unspecified Status: Acute Assessment and Plan: Cipro and Flagyl initiated 07/08 IV fluids, supportive care, ppi Monitor hemoglobin, suspect blood in stool is secondary to infection and is quite stable Will send stool for cdif, culture, leuks, check CRP Consult to GI placed in pending, likely needs colonoscopy due to recurrent episodes like this, concern for diverticulitis versus Crohn's versus ulcerative colitis versus ischemic vs infectious etiology Appreciate GI consult, plan for colonoscopy 07/10 07/11: colonoscopy showed ischemic colitis with diverticulosis, abx x 7 more days, end date 07/16/23 (2) Benign essential hypertension: Code(s): I10 - Essential (primary) hypertension Status: Acute Assessment and Plan: Continue home hydrochlorothiazide Blood pressures reviewed 07/11 Plan DVT prophylaxis with SCDs GI prophylaxis with PPI Code status full code Subjective Date/time seen: 07/11/23 12:09 Interval history: 62-year-old female with history of hypertension is presenting with abdominal pain, diarrhea, and blood in her stool. No overnight events noted. No chest pain or shortness of breath. No nausea, vomiting or diarrhea. No fevers or chills. Colonoscopy today 07/10 Review of Systems Review of Systems: 12 point review of systems was assessed and was negative except as noted in the HPI Exam Narrative: General: No acute distress, alert and oriented per baseline HEENT: Atraumatic, normocephalic, mucous membranes moist CV: Regular rate and rhythm, S1, S2 Lungs: Clear to auscultation bilaterally, no rales or crackles noted, no wheezes, good air entry Abdomen: Soft, nontender, nondistended Extremities: Normal to inspection Skin: No rashes noted, no lesions or wounds seen Psych: Euthymic, normal affect Objective Data Vital Signs Vital Signs: Vital Signs - 24 hr 07/10/23 12:30 07/10/23 14:00 07/10/23 21:23 Temperature 96.6 F L 96.6 F L 97.9 F Pulse Rate 84 84 86 Respiratory Rate 20 20 14 Blood Pressure 142/74 H 142/74 H 127/69 Pulse Oximetry 100 100 99 Oxygen Delivery 07/11/23 05:38 07/11/23 08:00 Temperature 98.1 F Pulse Rate 78 Respiratory Rate 12 Blood Pressure 109/55 L Pulse Oximetry 97 Oxygen Delivery Room Air Intake/Output Intake/Output: Intake & Output 07/08/23 07/09/23 07/10/23 07/11/23 23:59 23:59 23:59 23:59 Intake Total 3660 3875 2390 870 Output Total 300 Balance 3660 3875 2090 870 Meds/Results Medications: Active Medications Generic Name Dose Route Start Last Admin Trade Name Freq PRN Reason Stop Dose Admin Acetaminophen 650 mg 07/08/23 06:09 07/11/23 00:37 Acetaminophen 325 Mg Tablet PO 650 mg Q4H PRN Administration Mild Pain (1-3) or Fever Hydrochlorothiazide 25 mg 07/08/23 09:10 07/11/23 08:14 Hydrochlorothiazide 25 Mg Tablet PO 25 mg DAILY LATHA Administration Levofloxacin 750 mg 07/11/23 06:00 07/11/23 07:22 Levofloxacin 750 Mg Tablet PO Not Given DAILY [facility] Metronidazole 500 mg 07/10/23 21:00 07/11/23 06:37 Metronidazole 500 Mg Tablet PO 500 mg Q6HR LATHA Administration Morphine Sulfate 4 mg 07/08/23 06:09 07/09/23 11:50 Morphine Sulfate (*Crx) 4 Mg/Ml Inj IV PUSH 4 mg Q2H PRN Administration Pain Rated 7-10 Ondansetron HCl 4 mg 07/10/23 18:03 07/11/23 08:14 Ondansetron Hcl Odt 4 Mg Tablet PO 4 mg Q6H PRN Administration Nausea And Vomiting Pantoprazole Sodium 40 mg 07/11/23 09:00 07/11/23 08:14 Pantoprazole 40 Mg Tablet PO 40 mg QAM LATHA Administration Radiology Results: ITS Impressions Abdomen/Pelvis CT 07/08/23 05:16 IMPRESSION: 1. Wall thickening of the transverse colon, consistent with colitis. 2. Small volume of ascites. Labs Labs: Laboratory Results -
--- NOTE | 2023-07-11 12:10 | WPDANESPN ---
Anes - Prog Note Post-Op Date/Time: 07/11/23 12:10 Cardiovascular status: normal Respiratory status: normal Airway patency: baseline Mental status: baseline Post-Op hydration status: normal Vital Signs: Last Vital Signs Temp 36.7 C 07/11/23 05:38 Pulse 78 07/11/23 05:38 Resp 12 07/11/23 05:38 BP 109/55 L 07/11/23 05:38 Pulse Ox 97 07/11/23 05:38 O2 Del Method Room Air 07/11/23 08:00 Pain Score (VAS): 08/22 I/O: Intake & Output 07/10/23 07/11/23 07/11/23 23:59 07:59 15:59 Intake Total 960 750 120 Balance 960 750 120 Laboratory Tests 07/11/23 06:03 07/11/23 06:03 07/10/23 07/11/23 02:30 06:03 WBC 11.2 H RBC 4.18 L Hgb 13.0 Hct 39.3 MCV 94.0 MCH 31.1 MCHC 33.1 RDW 12.1 Plt Count 223 MPV 9.9 Immature Gran % (Auto) 0.4 Neut % (Auto) 63.5 Lymph % (Auto) 24.8 [place] % (Auto) 4.5 Eos % (Auto) 6.2 H Baso % (Auto) 0.6 Lymph # (Auto) 2.78 [place] # (Auto) 0.5 Eos # (Auto) 0.7 H Baso # (Auto) 0.1 Abs Immat Gran (auto) 0.04 H Absolute Neuts (auto) 7.1 H Absolute Nucleated RBC 0.0 Nucleated RBC % 0.0 Sodium 139 Potassium 3.0 L Chloride 104 Carbon Dioxide 29 Anion Gap 6 L BUN 10 Creatinine 0.60 L Estim Creat Clear Calc 85 Estimated GFR > 60 Glucose 93 Calcium 8.7 Total Bilirubin 0.5 AST 21 ALT 16 Alkaline Phosphatase 68 Total Protein 6.0 L Albumin 3.3 L C. difficile (PCR) Negative Post-procedural complaints: none Patient Feedback: Patient satisfied with anesthetic care.
[2023-07-11 14:00] VITALS: BP 104/50; PULSE 79; RESP 16; TEMP 36.5; O2SAT 100
--- NOTE | 2023-07-11 15:04 | PM.DS ---
DS: Admitting Diagnosis Discharge Date 07/11/23 Admitting Diagnosis Abdominal pain DS: Discharge Diagnosis Discharge Diagnosis (1) Colitis: Code(s): K52.9 - Noninfective gastroenteritis and colitis, unspecified Status: Acute Assessment and Plan: Cipro and Flagyl initiated 07/08 IV fluids, supportive care, ppi Monitor hemoglobin, suspect blood in stool is secondary to infection and is quite stable Will send stool for cdif, culture, leuks, check CRP Consult to GI placed in pending, likely needs colonoscopy due to recurrent episodes like this, concern for diverticulitis versus Crohn's versus ulcerative colitis versus ischemic vs infectious etiology Appreciate GI consult, plan for colonoscopy 07/10 07/11: colonoscopy showed ischemic colitis with diverticulosis, abx x 7 more days, end date 07/16/23 (2) Benign essential hypertension: Code(s): I10 - Essential (primary) hypertension Status: Acute Assessment and Plan: Continue home hydrochlorothiazide Blood pressures reviewed 07/11 Plan DVT prophylaxis with SCDs GI prophylaxis with PPI Code status full code DS: Summary Hospital Course Hospital Course: 62-year-old female with history of hypertension is presenting with abdominal pain, diarrhea, and blood in her stool. Cipro and Flagyl initiated 07/08 IV fluids, supportive care, ppi Monitor hemoglobin, suspect blood in stool is secondary to infection and is quite stable Will send stool for cdif, culture, leuks, check CRP---C diff negative Consult to GI placed in pending, likely needs colonoscopy due to recurrent episodes like this, concern for diverticulitis versus Crohn's versus ulcerative colitis versus ischemic vs infectious etiology Appreciate GI consult, plan for colonoscopy 07/10 07/11: colonoscopy showed ischemic colitis with diverticulosis, abx x 7 more days, end date 07/16/23 All symptoms resolved. Patient was discharged in stable condition on oral antibiotics. Please see above and med rec for details. Time Spent with Patient Time attestation: Total time spent providing and/or coordinating discharge services: Exam Narrative: General: No acute distress, alert and oriented per baseline HEENT: Atraumatic, normocephalic, mucous membranes moist CV: Regular rate and rhythm, S1, S2 Lungs: Clear to auscultation bilaterally, no rales or crackles noted, no wheezes, good air entry Abdomen: Soft, nontender, nondistended Extremities: Normal to inspection Skin: No rashes noted, no lesions or wounds seen Psych: Euthymic, normal affect DS: Data Data Completed and Pending Pending studies at discharge: Pending at discharge 07/10/23 10:56 Surgical [PTH] Routine Labs on day of discharge: Labs from last 24 hours 07/11/23 07/10/23 06:03 02:30 WBC 11.2 H RBC 4.18 L Hgb 13.0 Hct 39.3 MCV 94.0 MCH 31.1 MCHC 33.1 RDW 12.1 Plt Count 223 MPV 9.9 Immature Gran % (Auto) 0.4 Neut % (Auto) 63.5 Lymph % (Auto) 24.8 [place] % (Auto) 4.5 Eos % (Auto) 6.2 H Baso % (Auto) 0.6 Lymph # (Auto) 2.78 [place] # (Auto) 0.5 Eos # (Auto) 0.7 H Baso # (Auto) 0.1 Abs Immat Gran (auto) 0.04 H Absolute Neuts (auto) 7.1 H Absolute Nucleated RBC 0.0 Nucleated RBC % 0.0 Sodium 139 Potassium 3.0 L Chloride 104 Carbon Dioxide 29 Anion Gap 6 L BUN 10 Creatinine 0.60 L Estim Creat Clear Calc 85 Estimated GFR > 60 Glucose 93 Calcium 8.7 Total Bilirubin 0.5 AST 21 ALT 16 Alkaline Phosphatase 68 Total Protein 6.0 L Albumin 3.3 L C. difficile (PCR) Negative Preliminary micro results at discharge 07/08/23 06:54 Blood Culture - Preliminary Blood 07/08/23 06:50 Blood Culture - Preliminary Blood Discharge Plan Discharge Attending physician on discharge: Valerie Bello Consulting providers: Jeancarlos Alamo; Yumiko Oneill; Van Saleem; Viraj Blackwell
== END 2023-07-11 15:50 | disposition home or self-care (01) | DRG 395 ==
LOC: ANHED 07-08 06:06 → ANH3MEDSUR 07-08 06:40
PROVIDERS: Internal Medicine Gastroenterology; Admitting Provider General Practice; Emergency Provider Emergency Medicine; PCP Physician Assistant; Visit Provider Student in an Organized Health Care Education/Training Program
PROC: 0DJD8ZZ Inspection of Lower Intestinal Tract, Via Natural or Artificial Opening Endoscopic (ICD-10-PCS; CPT 45378; principal; 2023-07-10 11:00)
DX: K55.031 Focal (segmental) acute (reversible) ischemia of large intestine (principal); K57.30 Diverticulosis of large intestine without perforation or abscess without bleeding; I10 Essential (primary) hypertension; D72.829 Elevated white blood cell count, unspecified; E66.9 Obesity, unspecified; Z68.31 Body mass index [BMI] 31.0-31.9, adult
CPT/HCPCS: 36415; 74177; 80053; 85025; 85610; 85730; 86140; 86850; 86900; 86901; 87040; 87045; 87427; 87449; 87493; 88305; 89055; 96361; 96365; 96366; 96367; 96374; 96375; 96376; 99285; A9270; C9113; G0378; J1836; J1956; J2270; J2405; J2550; J2704; J7030; J7120; Q9967

== ENCOUNTER 2024-05-19 09:54 | Outpatient (CLI) | payer OTHER, SELFPAY ==
--- NOTE | ~2024-05-19 | XR_ITS ---
XR abdomen/kub 1V 05/19/2024 10:29 INDICATION: Nausea and recent ischemic colitis. TECHNIQUE: KUB COMPARISON: CT dated 05/16/2024 FINDINGS: Bowel gas pattern is normal. There is no evidence of free air, mass, organomegaly, ascites or obstruction. No abnormal calculi are seen. The bones appear intact. There are cholecystectomy c lips. IMPRESSION: 1: No acute abdominal abnormality identified. Reviewed, dictated and finalized at location B. MAKING MACHINE OPERATOR
[2024-05-19 10:35] LABS: CRP < 0.5 mg/dL (<1.0)
[2024-05-19 10:43] LABS: Erythrocyte Sedimentation Rate 15 mm/hr (0-20)
[2024-05-20 07:53] LABS: Myeloperoxidase Ab <1.0 AI
== END 2024-05-19 09:55 | disposition home or self-care (01) ==
PROVIDERS: PCP Student in an Organized Health Care Education/Training Program; Visit Provider Nurse Practitioner
DX: K55.9 Vascular disorder of intestine, unspecified (principal); R11.0 Nausea
CPT/HCPCS: 36415; 74018; 85652; 86036; 86038; 86039; 86140; 86160

== ENCOUNTER 2024-05-25 08:15 | Outpatient (CLI) | payer OTHER, SELFPAY | END 2024-05-25 08:16 | disposition home or self-care (01) | LOC: ANHLAB 08:16 | PROVIDERS: PCP Student in an Organized Health Care Education/Training Program; Visit Provider Nurse Practitioner | DX: K55.9 Vascular disorder of intestine, unspecified (principal) | CPT/HCPCS: 83993; 87045; 87269; 87427; 87449; 87493 ==

== ENCOUNTER 2024-06-03 08:48 | Outpatient (CLI) | payer OTHER, SELFPAY ==
--- NOTE | ~2024-06-03 | CT_ITS ---
EXAMINATION: CTA abdomen pelvis DATE: 06/03/2024 09:27 INDICATION: Ischemic colitis. TECHNIQUE: Computed tomographic angiography (CTA) of the abdomen and pelvis was performed with 100 mL Omnipaque-350 intravenous contrast. Automated exposure control and iterative reconstruction techniqu e were employed. The dose-length product was 774.93 mGy-cm. Maximum intensity projection 3D-reconstru ctions of the aorta and other arteries were constructed by the technologist on a separate workstation . COMPARISON: CT abdomen and pelvis 05/16/2024 FINDINGS: The visualized portions of the lung bases demonstrate mild atelectasis. No pleural effusion . The heart size is normal. No pericardial effusion. There is a 1.5 cm cyst in the liver. There are c hanges of cholecystectomy. The spleen, pancreas, adrenal glands, and kidneys are normal. There is div erticulosis of the colon without evidence of diverticulitis. There are no dilated loops of bowel. The appendix is normal. There are no pathologically enlarged lymph nodes. There is no free intraperitone al fluid. Abdominal aorta is normal in caliber. There is no significant stenosis of celiac axis, supe rior mesenteric artery, the renal arteries, or inferior mesenteric artery. There is moderate lumbar s pondylosis. IMPRESSION: 1. No significant arterial occlusive disease. Reviewed, dictated and finalized at location A. F INSPECTOR
== END 2024-06-03 08:49 | disposition home or self-care (01) ==
LOC: ANHIMG 08:57
PROVIDERS: PCP Student in an Organized Health Care Education/Training Program; Visit Provider Nurse Practitioner
DX: K55.9 Vascular disorder of intestine, unspecified (principal)
CPT/HCPCS: 74174; Q9967